=== PATIENT | male | born 2000 | race Two or more races ===

== ENCOUNTER 2023-11-21 04:01 | Emergency (ER) | payer SELFPAY ==
[2023-11-21] MEDS ORDERED: Lidocaine 1% PF 2 ML SDV INJECT ONE (04:37)
[2023-11-21] MEDS ORDERED: Bupivacaine 0.5%/EPINEPHrine 1:200,000 30 ML SDV INJECT ONE (04:55)
== END 2023-11-21 05:23 | disposition home or self-care (01) ==
LOC: JD.ED 04:01
DX: K04.7 Periapical abscess without sinus (principal); K02.9 Dental caries, unspecified; F17.210 Nicotine dependence, cigarettes, uncomplicated
CPT/HCPCS: 64400; 99282-25; 99283; J3490